=== PATIENT | female | born 1990 | race Caucasian/White ===

== ENCOUNTER 2016-03-19 09:34 | Emergency (ER) | payer OTHER ==
[~2016-03-19] VITALS: Ht 160 cm; Wt 89.8 kg
[~2016-03-19 09:34] MED LIST: CIPR-231 PO; HYDR2TAB27 PO; ONDA8TAB7 PO; OXYC-466 PO; PROM25TA14 PO
[2016-03-19 09:35] VITALS: BP 131/76; PULSE 129; RESP 24; O2SAT 100
--- NOTE | 2016-03-19 09:35 | ED.REPORT ---
HPI-Allergic Reaction Date of Service Mar 19, 2016 ED Provider: MD Daniel This is a 25 year old female brought to the ED by EMS from urgent care for allergic reaction that began just prior to arrival. Pt developed diffuse rash yesterday evening and woke up today with worsening redness, skin warmth, itching , and throat swelling. Also reports nausea, diarrhea, lightheadedness, fever, and a skin boil to the R buttock which she first noticed 3 weeks ago, denies drainage. She has been taking Bactrim for 8 days. At urgent care, pt received EpiPen (0.1 mg, IM), Solu-Medrol (125 mg, IV), and Benadryl (25 mg, PO). En route, pt was tachycardic, O2 sats of 98%, and BP of 113/80. Nursing Notes Stated Complaint: ALLERGIC REACTION Nursing Notes Reviewed: Yes Allergies: Coded Allergies: sulfamethoxazole (Verified Allergy, Intermediate, Hives and Wheezing, 03/19) trimethoprim (Verified Allergy, Intermediate, Hives and Wheezing, 03/19/16) Scheduled Ciprofloxacin (Cipro) 500 Mg Tablet 500 MG PO BID Scheduled PRN Hydromorphone (Dilaudid) 2 Mg Tablet 2 MG PO Q4H PRN PRN Pain Ondansetron ODT (Zofran ODT) 8 Mg Tablet 8 MG PO Q4H PRN PRN For Nausea Promethazine (Promethazine) 25 Mg Tablet 25 MG PO Q4H PRN PRN For Nausea oxyCODONE-Acetaminophen 10-325 mg (oxyCODONE-Acetaminophen 10-325 mg) 1 Each Tablet 1 TABLET PO Q4H PRN PRN For Pain General Time Seen by MD: 09:35 Chief Complaint Allergic reaction Hx Obtained From: Patient Arrived By: Ambulance Onset Occurred: Just prior to arrival Symptom Duration: Since onset Severity: Current: Mild Pertinent Negative: Pt denies other symptoms Recent Healthcare: No recent doctor visit, No recent hospitalization Similar Sx Previous: No Past Medical History Past Medical History uretolithiasis Past Surgical History Denies Smoking History Former Smoker Ambulatory Status Independent Review of Systems Constitutional: Denies: Chills, Fever Ears / Nose / Throat: Reports: Throat swelling Respiratory: Denies: Non-productive cough, Shortness of breath GI: Reports: Diarrhea, Nausea, Denies: Abdominal pain, Vomiting Skin: Reports Rash Allergy / Immune: Reports: Allergic reaction Neurologic: Reports: Lightheaded, Denies: Headache Complete sys rev & neg: except as marked. Physical Exam Initial Vital Signs Vital Signs (First) Date Time Temp Pulse Resp B/P Pulse Ox O2 Delivery O2 Flow Rate FiO2 03/19/16 09:35 37.8 129 24 131/76 100 Room Air - Initial VS: Reviewed Neck: Non-tender, Full range of motion Abdomen / GI: Soft, Non-tender, No guarding, No rebound, No distention Extremities: Vascular intact, Neuro intact, No swelling, No tenderness Neurologic: Alert, Oriented, Nonfocal Psychiatric: Mood/affect normal, Behavior normal, Normal thought content General/Constitutional: Awake, Alert Respiratory / Chest: Breath sounds NL, Breath sounds = bilat, No respiratory distress, No rales, No rhonchi, No wheezing, No retractions, No stridor Cardiovascular: Heart sounds NL, No murmurs Heart Rate / Rhythm: Positive: Tachycardia Color / Condition: Positive: Erythema generalized On the R buttock about 10 cm from the anal verge, there is a small, healing papule with some surrounding peeling skin, no palpable abscess. Mouth: Positive: Tongue abnormal Large tongue, cannot visualize uvula, soft palate is diffusely erythematous. Mallampati score of 4. Interpretation & Diagnostics Lab Results Interpretation Result Diagram: 03/19/16 0945 Test 03/19/16 09:45 White Blood Count 5.9th/mm3 (3.8-10.1) Red Blood Count 4.72mil/mm3 (3.90-5.20) Hemoglobin 13.6g/dL (12.0-15.6) Hematocrit 41.5% (35.0-46.0) Mean Corpuscular Volume 87.9fL (81-100) Mean Corpuscular Hemoglobin 28.8pg (27.0-35.0) Mean Corpuscular Hemoglobin Concent 32.8% (32.0-37.0) Red Cell Distribution Width 13.3% (12.3-15.4) Platelet Count 215bil/L (150-400) Neutrophils (%) (Auto) 41.8% (40-74) Lymphocytes (%) (Auto) 40.2% (14-46) Monocytes (%) (Auto) 8.2% (4-12) Eosinophils (%) (Auto) 9.3% (0-5) Basophils (%) (Auto) 0.3% (0-3) Hold Purple Top Tube Received (Received) Hold Blue Top Tube Received (Received) Hold Red Top Tube Received (Received) Hold [place] Top Tube Received (Received) US Soft Tissue/Musculoskeletal On the R buttock about 10 cm from the anal verge, there is a small, healing papule with some surrounding peeling skin, no palpable abscess. Exam Performed by: ED physician Exam Interpreted by: ED physician Views: Skin & subcut tissue Re-Eval/Medical Decision Re-Evaluation/Progress #1: Time of Eval: 10:36 Re-Evaluation/Progress Note: Throat swelling is improved. Skin itching persists. Re-Evaluation/Progress #2: Time of Eval: 11:14 Re-Evaluation/Progress Note: Bedside US performed, discussed plan for d/c, pt understands and agrees with plan, all questions addressed. Counseled Regarding: Diagnosis, Need for follow-up, When/why to return to ED Discharge & Departure Primary Impression: Allergic reaction caused by a drug Additional Impression: Flu-like symptoms Disposition: Home Discharge Condition All VS Reviewed: Yes Condition: Stable Patient Instructions: Anaphylaxis (DC), Fever in Adults (GEN) Additional Instructions: You likely had an allergic reaction to the sulfa antibiotics you were taking. Do not take these medications in the future. Take Benadryl 1-2, 25 mg tablets every 6 hours, as needed for symptom control. Take Tylenol 1000 g every 6 hours and/or ibuprofen 800 mg every 8 hours as needed for fever or discomfort. Follow-up with your primary care provider. Return to the emergency department for any new or worsening symptoms such as difficult swallowing, shortness of breath, facial swelling, or throat swelling if these do not improve within 30 minutes of taking Benadryl. Referrals: Beatrice Cespedes MD Attestation Portions of this note were transcribed by Marli Sun. I, Dr. Sanchez personally performed the history, physical exam and medical decision-making; I reviewed and confirmed the accuracy of the information in the transcribed note. Signed by: gilberto Yost. 03/19/2016, 10:00. Lionel Sanchez MD Mar 19, 2016 09:35 MARLI SUN Mar 19, 2016 09:44
[2016-03-19] MEDS ORDERED: Famotidine 10 mg/mL 2 mL Inj IVPUSH ONE (09:45)
[2016-03-19 10:18] VITALS: BP 106/56; PULSE 100; RESP 22; O2SAT 98
[2016-03-19 10:47] LABS: BASOPHILS % (AUTO) 0.3 % (0-3); EOSINOPHILS % (AUTO) 9.3 % (0-5); MONOCYTES % (AUTO) 8.2 % (4-12); Mean Corpuscular Hemoglobin 28.8 pg (27.0-35.0); Mean Corpuscular Volume 87.9 fL (81-100); NEUTROPHILS % (AUTO) 41.8 % (40-74); Platelet Count 215 bil/L (150-400)
[2016-03-19 11:45] VITALS: BP 114/63; PULSE 103; RESP 24; O2SAT 98
[2016-03-19 11:54] VITALS: BP 114/63; PULSE 103; RESP 24; O2SAT 98
== END 2016-03-19 11:23 | disposition home or self-care (01) ==
LOC: SED 09:34
DX: L27.0 Generalized skin eruption due to drugs and medicaments taken internally (principal); R22.1 Localized swelling, mass and lump, neck; T36.8X5A Adverse effect of other systemic antibiotics, initial encounter; R50.9 Fever, unspecified; R11.0 Nausea; R42 Dizziness and giddiness; R19.7 Diarrhea, unspecified; Z87.891 Personal history of nicotine dependence; Z88.1 Allergy status to other antibiotic agents; Z88.2 Allergy status to sulfonamides
CPT/HCPCS: 36415; 85025; 96374; 96375; 99285; J1200